=== PATIENT | female | born 1950 | race Caucasian/White ===

== ENCOUNTER → 2019-03-28 | Outpatient (CLI) | payer MEDICARE ==
[2019-03-28 15:25] LABS: Basophils % (A) 1 %; Eosinophils # (A) 0.1 k/uL (0-0.7); Eosinophils % (A) 2 %; HCT 40.2 % (34.0-46.0); HGB 13.1 gm/dL (11.4-16.0); Lymphocytes % (A) 29 %; MCH 30.5 pg (25.0-35.0); MCHC 32.7 g/dL (31.0-37.0); MCV 93.4 fL (80.0-100.0); Mean Platelet Volume 7.4; Monocytes # (A) 0.2 k/uL (0-1.0); Monocytes % (A) 7 %; Neutrophils % (A) 58 %; Platelet Count 225 k/uL (150-450); RDW 13.1 % (11.5-15.5); WBC 3.4 k/uL (3.8-10.6)
--- NOTE | 2019-03-28 16:06 | XR ---
EXAMINATION TYPE: XR chest 2V DATE OF EXAM: 03/28/2019 COMPARISON: None HISTORY: 68-year-old female with cough TECHNIQUE: Frontal and lateral views FINDINGS: Heart normal size. Aorta and pulmonary vasculature within normal limits. Hyperinflation with mild ricky pical pleural-parenchymal scarring. No consolidation or pleural effusion. IMPRESSION: COPD without acute cardiopulmonary process.
[2019-03-28 20:16] LABS: ALT 23 U/L (8-44); AST 27 U/L (13-35); Alkaline Phosphatase 100 U/L (41-126); Calcium 9.2 mg/dL (8.7-10.3); Carbon Dioxide 25.8 mmol/L (21.6-31.8); Chloride 104 mmol/L (96-109); Cholesterol 236 mg/dL (0-200); Globulin 2.1 g/dL (1.6-3.3); Glucose 106 mg/dL (70-110); Potassium 4.5 mmol/L (3.5-5.5); Sodium 139 mmol/L (135-145); Total Bilirubin 0.4 mg/dL (0.2-1.2); Total Protein 6.5 g/dL (6.2-8.2); Triglycerides <50.0 mg/dL (0.0-149.0); VLDL Calculation 9.98 mg/dL (5.00-40.00)
[2019-03-28 21:16] LABS: Hemoglobin A1C 5.6 % (4.0-6.0)
== END | disposition home or self-care (01) ==
LOC: LABWHC1 13:43
PROVIDERS: ATTEND Family Medicine
DX: J44.9 Chronic obstructive pulmonary disease, unspecified (principal); R07.89 Other chest pain; Z13.220 Encounter for screening for lipoid disorders; Z13.1 Encounter for screening for diabetes mellitus
CPT/HCPCS: 36415; 71046; 80053; 80061; 83036; 84443; 85025

== ENCOUNTER → 2020-01-10 | Outpatient (CLI) | payer MEDICARE ==
[2020-01-10 08:34] LABS: Basophils % (A) 1 %; Eosinophils # (A) 0.1 k/uL (0-0.7); Eosinophils % (A) 2 %; Lymphocytes # (A) 0.8 k/uL (1.0-4.8); Lymphocytes % (A) 28 %; MCH 30.8 pg (25.0-35.0); MCHC 32.5 g/dL (31.0-37.0); MCV 94.8 fL (80.0-100.0); Mean Platelet Volume 7.2; Monocytes # (A) 0.2 k/uL (0-1.0); Monocytes % (A) 8 %; Neutrophils # (A) 1.7 k/uL (1.3-7.7); Neutrophils % (A) 58 %; Platelet Count 220 k/uL (150-450); RBC 4.22 m/uL (3.80-5.40); RDW 12.5 % (11.5-15.5); WBC 2.9 k/uL (3.8-10.6)
[2020-01-10 15:53] LABS: Hemoglobin A1C 5.3 % (4.0-6.0)
[2020-01-10 16:09] LABS: ALT 15 U/L (8-44); AST 21 U/L (13-35); African American GFR (CKD) 103.2 (60.0-200.0); Albumin/Globulin Ratio 2.26 (1.60-3.17); Alkaline Phosphatase 89 U/L (41-126); BUN/Creat Ratio 15.71 Ratio (12.00-20.00); Carbon Dioxide 27.8 mmol/L (21.6-31.8); Chloride 103 mmol/L (96-109); Chol/HDL Ratio 2.59; Cholesterol 249 mg/dL (0-200); Globulin 1.9 g/dL (1.6-3.3); Glucose 106 mg/dL (70-110); Potassium 3.7 mmol/L (3.5-5.5); Sodium 138 mmol/L (135-145); Total Bilirubin 0.3 mg/dL (0.3-1.2); Total Protein 6.2 g/dL (6.2-8.2); Triglycerides <50.0 mg/dL (0.0-149.0)
== END | disposition home or self-care (01) ==
LOC: LABWHC1 07:58
PROVIDERS: ATTEND Family Medicine
DX: Z13.29 Encounter for screening for other suspected endocrine disorder (principal); K21.0 Gastro-esophageal reflux disease with esophagitis; E78.00 Pure hypercholesterolemia, unspecified; R79.9 Abnormal finding of blood chemistry, unspecified
CPT/HCPCS: 36415; 80053; 80061; 83036; 84443; 85025

== ENCOUNTER → 2020-01-24 | Outpatient (CLI) | payer MEDICARE ==
[2020-01-24 09:26] LABS: Basophils % (A) 1 %; Eosinophils # (A) 0.1 k/uL (0-0.7); Eosinophils % (A) 2 %; HCT 39.1 % (34.0-46.0); HGB 13.1 gm/dL (11.4-16.0); Lymphocytes % (A) 30 %; MCH 31.5 pg (25.0-35.0); MCHC 33.4 g/dL (31.0-37.0); MCV 94.3 fL (80.0-100.0); Mean Platelet Volume 7.5; Monocytes # (A) 0.2 k/uL (0-1.0); Monocytes % (A) 7 %; Neutrophils # (A) 1.9 k/uL (1.3-7.7); Neutrophils % (A) 58 %; Platelet Count 213 k/uL (150-450); RBC 4.15 m/uL (3.80-5.40); RDW 12.3 % (11.5-15.5); WBC 3.3 k/uL (3.8-10.6)
== END | disposition home or self-care (01) ==
LOC: LABWHC1 07:54
PROVIDERS: ATTEND Family Medicine
DX: D72.819 Decreased white blood cell count, unspecified (principal)
CPT/HCPCS: 36415; 85025

== ENCOUNTER 2023-03-02 16:29 | Emergency (ER) | payer MEDICARE ==
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
[2023-03-02 17:08] LABS: Basophils % (A) 0 %; Eosinophils # (A) 0.1 k/uL (0-0.7); Eosinophils % (A) 1 %; HCT 39.9 % (34.0-46.0); HGB 13.5 gm/dL (11.4-16.0); Lymphocytes # (A) 1.8 k/uL (1.0-4.8); Lymphocytes % (A) 32 %; MCH 31.8 pg (25.0-35.0); MCHC 33.8 g/dL (31.0-37.0); Mean Platelet Volume 7.4; Monocytes # (A) 0.3 k/uL (0-1.0); Monocytes % (A) 5 %; Neutrophils # (A) 3.3 k/uL (1.3-7.7); Neutrophils % (A) 60 %; Platelet Count 239 k/uL (150-450); RBC 4.24 m/uL (3.80-5.40); RDW 12.8 % (11.5-15.5); WBC 5.6 k/uL (3.8-10.6)
[2023-03-02 17:17] LABS: INR 0.9 (<1.2); Partial Thromboplastin Time 22.4 sec (22.0-30.0); Prothrombin Time 9.5 sec (9.0-12.0)
[2023-03-02 17:26] LABS: ALT 33 U/L (4-34); AST 55 U/L (14-36); African American GFR (CKD) >90 (>60 ml/min/1.73 sqM); Albumin 4.5 g/dL (3.5-5.0); Alcohol <10 mg/dL; Alkaline Phosphatase 122 U/L (38-126); Anion Gap 10 mmol/L; Blood Urea Nitrogen 14 mg/dL (7-17); Carbon Dioxide 26 mmol/L (22-30); Chloride 97 mmol/L (98-107); Glucose 104 mg/dL (74-99); Non-African American GFR(CKD) 89 (>60 ml/min/1.73 sqM); Potassium 3.5 mmol/L (3.5-5.1); Sodium 133 mmol/L (137-145); Total Bilirubin 0.4 mg/dL (0.2-1.3); Total Protein 7.6 g/dL (6.3-8.2)
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
[2023-03-02 17:56] VITALS: RESP 16
[2023-03-02 17:57] VITALS: BP 168/71; PULSE 75; TEMP 98.7
[2023-03-02] MEDS ORDERED: KETOROLAC 15 MG/ML 1 ML VIAL IVP STA (18:25)
[2023-03-02 18:27] LABS: Amphetamine Screen,Urine Not Detected (NotDetected); Barbiturate Screen,Urine Detected (NotDetected); Benzodiazepines Screen,Urine Not Detected (NotDetected); Cocaine Screen,Urine Not Detected (NotDetected); Methadone Screen, Urine Not Detected (NotDetected); Opiate Screen,Urine Not Detected (NotDetected); Oxycodone Screen, Urine Not Detected (NotDetected); Phencyclidine Screen,Urine Not Detected (NotDetected); Tricyclic Antidepressant,Urine Not Detected (NotDetected); Urn Cannabinoid Scrn Not Detected (NotDetected)
== END 2023-03-02 19:08 | disposition home or self-care (01) ==
LOC: EC 16:29
DX: S22.41XA Multiple fractures of ribs, right side, initial encounter for closed fracture (principal); S27.321A Contusion of lung, unilateral, initial encounter; Z88.6 Allergy status to analgesic agent; V49.40XA Driver injured in collision with unspecified motor vehicles in traffic accident, initial encounter
CPT/HCPCS: 36415; 93005; 86900; 86901; 80053; 84484; 85025; 85610; 85730; 86850; 80306; 72170; 71045; 71260; 74177; 99285; 96374; G0480; J1885; Q9967; 80320

== ENCOUNTER → 2023-05-10 | Outpatient (CLI) | payer MEDICARE ==
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
== END | disposition home or self-care (01) ==
LOC: RADXRMAIN 14:14
PROVIDERS: ATTEND Registered Nurse
DX: J18.9 Pneumonia, unspecified organism (principal); R05.9 Cough, unspecified
CPT/HCPCS: 71046

== ENCOUNTER → 2024-03-04 | Outpatient (CLI) | payer MEDICARE ==
[2024-03-04 14:52] LABS: ALT 21 U/L (8-44); AST 25 U/L (13-35); Albumin 4.3 g/dL (3.8-4.9); Albumin/Globulin Ratio 1.65 Ratio (1.60-3.17); Alkaline Phosphatase 91 U/L (41-126); BUN/Creat Ratio 19.67 Ratio (12.00-20.00); Blood Urea Nitrogen 11.8 mg/dL (9.0-27.0); Calcium 9.3 mg/dL (8.7-10.3); Carbon Dioxide 27.4 mmol/L (21.6-31.8); Chloride 98 mmol/L (96-109); Chol/HDL Ratio 2.31 Ratio; Globulin 2.6 g/dL (1.6-3.3); Glucose 106 mg/dL (70-110); LDL Cholesterol,Calculated 122.9 mg/dL (0.0-131.0); Potassium 4.9 mmol/L (3.5-5.5); Sodium 136 mmol/L (135-145); Total Bilirubin 0.2 mg/dL (0.3-1.2); Total Protein 6.9 g/dL (6.2-8.2)
== END | disposition home or self-care (01) ==
LOC: LABWHC1 08:32
PROVIDERS: ATTEND Family Medicine
DX: E78.00 Pure hypercholesterolemia, unspecified (principal); F41.9 Anxiety disorder, unspecified; R79.89 Other specified abnormal findings of blood chemistry; R07.89 Other chest pain
CPT/HCPCS: 36415; 80053; 80061; 83036; 84443

== ENCOUNTER → 2024-09-04 | Outpatient (CLI) | payer MEDICARE ==
[2024-09-04 16:12] LABS: HCT 39.2 % (37.2-46.3); HGB 13.1 g/dL (12.0-15.0); MCH 31.5 pg (27.0-32.0); MCHC 33.4 g/dL (32.0-37.0); MCV 94.2 FL (80.0-97.0); Mean Platelet Volume 9.6 FL (9.5-12.2); NRBC Per 100 WBC 0 X 10*3/uL (0.00-0.01); Platelet Count 244 X 10*3/uL (140-440); RBC 4.16 X 10*6/uL (4.10-5.20); RDW 12.7 % (11.5-14.5); WBC 4.12 X 10*3/uL (4.50-10.00)
[2024-09-04 16:16] LABS: ALT 18 U/L (8-44); AST 25 U/L (13-35); Albumin 4.1 g/dL (3.8-4.9); Albumin/Globulin Ratio 1.64 Ratio (1.60-3.17); Alkaline Phosphatase 113 U/L (41-126); Blood Urea Nitrogen 12.6 mg/dL (9.0-27.0); Calcium 8.7 mg/dL (8.7-10.3); Carbon Dioxide 25.9 mmol/L (21.6-31.8); Chloride 101 mmol/L (96-109); Chol/HDL Ratio 2.39 Ratio; Globulin 2.5 g/dL (1.6-3.3); Glucose 106 mg/dL (70-110); LDL Cholesterol,Calculated 90.4 mg/dL (0.0-131.0); Potassium 4.4 mmol/L (3.5-5.5); Sodium 138 mmol/L (135-145); Total Bilirubin 0.2 mg/dL (0.3-1.2); Total Protein 6.6 g/dL (6.2-8.2); VLDL Calculation 17.32 mg/dL (5.00-40.00)
== END | disposition home or self-care (01) ==
LOC: LABWHC1 08:20
PROVIDERS: ATTEND Family Medicine
CPT/HCPCS: 36415; 80053; 80061; 82306; 83036; 84443; 85027

== ENCOUNTER → 2025-02-24 | Outpatient (CLI) | payer MEDICARE ==
[2025-02-24 13:55] LABS: ALT 30 U/L (8-44); AST 32 U/L (13-35); Albumin 4.2 g/dL (3.8-4.9); Albumin/Globulin Ratio 1.62 Ratio (1.60-3.17); Alkaline Phosphatase 106 U/L (41-126); BUN/Creat Ratio 19.75 Ratio (12.00-20.00); Blood Urea Nitrogen 15.8 mg/dL (9.0-27.0); Calcium 9.1 mg/dL (8.7-10.3); Chloride 100 mmol/L (96-109); Chol/HDL Ratio 1.92 Ratio; Globulin 2.6 g/dL (1.6-3.3); Glucose 99 mg/dL (70-110); LDL Cholesterol,Calculated 85.9 mg/dL (0.0-131.0); Sodium 136 mmol/L (135-145); Total Bilirubin 0.3 mg/dL (0.3-1.2); Total Protein 6.8 g/dL (6.2-8.2); VLDL Calculation 7.12 mg/dL (5.00-40.00)
[2025-02-24 14:09] LABS: Basophils # (A) 0.05 X 10*3/uL (0.00-0.10); Basophils % (A) 1.3 %; Eosinophils # (A) 0.09 X 10*3/uL (0.04-0.35); Eosinophils % (A) 2.4 %; HCT 38.9 % (37.2-46.3); HGB 12.5 g/dL (12.0-15.0); Lymphocytes # (A) 1.17 X 10*3/uL (0.90-5.00); Lymphocytes % (A) 30.9 %; MCH 31.1 pg (27.0-32.0); MCHC 32.1 g/dL (32.0-37.0); MCV 96.8 FL (80.0-97.0); Mean Platelet Volume 10.2 FL (9.5-12.2); Monocytes # (A) 0.39 X 10*3/uL (0.20-1.00); Monocytes % (A) 10.3 %; NRBC Per 100 WBC 0 X 10*3/uL (0.00-0.01); Neutrophils # (A) 2.08 X 10*3/uL (1.80-7.70); Neutrophils % (A) 54.8 %; Platelet Count 211 X 10*3/uL (140-440); RBC 4.02 X 10*6/uL (4.10-5.20); RDW 13.2 % (11.5-14.5); WBC 3.79 X 10*3/uL (4.50-10.00)
== END | disposition home or self-care (01) ==
LOC: LABWHC1 08:27
PROVIDERS: ATTEND Family Medicine
DX: J45.909 Unspecified asthma, uncomplicated (principal); K21.9 Gastro-esophageal reflux disease without esophagitis
CPT/HCPCS: 36415; 80053; 80061; 83036; 84443; 85025